=== PATIENT | male | born 1955 | race Caucasian/White ===

== ENCOUNTER 2019-09-19 16:09 | Emergency (ER) | payer BC ==
[2019-09-19] MEDS ORDERED: NEOMYCIN/POLYMYXIN B SULF/HC 10ML BTL OT ONE (16:40)
--- NOTE | 2019-09-19 16:41 | Emergency Department Record ---
History of Present Illness - General Chief complaint: ENT Stated complaint: R EAR PAIN Time Seen by Provider: 09/19/19 16:29 Source: Patient Mode of Arrival: Ambulatory Limitations: No limitations - History of Present Illness Initial comments: The patient has had R ear pain for 4 days. It has gotten worse the last day or two. He denies any [place], ST, cough, or fever. The patient does use Q-tips but denies any possibility of scratching the eardrum. Additionally the patient has had some dry heaves in the morning only for the last 3 days. He states his blood sugar has been running OK for him and has not been high. MD complaint: Ear pain Onset/Timin -: Days(s) Location: R ear Severity: Moderate Severity scale (1-10): 8 Quality: Sharp, Stabbing Consistency: Constant Improves with: NSAID, Other medication Worsens with: None - Related Data Home Medications Medication Instructions Recorded Confirmed Last Taken Chlorthalidone 25 mg PO DAILY 09/19/19 09/19/19 09/19/19 Enalapril Maleate [Vasotec] 20 mg PO DAILY 09/19/19 09/19/19 09/19/19 Insulin Glargine,Hum.rec.anlog 100 unit SQ ASDIR 09/19/19 09/19/19 09/19/19 [Lantus Solostar] Metformin HCl 500 mg PO BID 09/19/19 09/19/19 09/19/19 Omeprazole [Prilosec] 20 mg PO DAILY 09/19/19 09/19/19 09/19/19 Simvastatin 20 mg PO DAILY 09/19/19 09/19/19 09/19/19 Sitagliptin Phosphate [Januvia] 100 mg PO ASDIR 09/19/19 09/19/19 09/19/19 Allergies Allergy/AdvReac Type Severity Reaction Status Date / Time No Known Drug Allergies Allergy Verified 09/19/19 16:23 Travel Screening - Travel/Exposure Within Last 30 Days Have you traveled within the last 30 days?: No - Travel/Exposure Within Last Year Have you traveled outside the [place] in the last year?: No - Additonal Travel Details Have you been exposed to anyone with a communicable illness?: No - Travel Symptoms Symptom Screening: None Review of Systems Constitutional: Denies: Chills, Fever Eyes: Denies: Eye discharge ENT: Denies: Congestion Respiratory: Denies: Cough, Dyspnea Past Medical History - SOCIAL HISTORY Smoking Status: Current every day smoker Alcohol Use: None Drug Use: None - RESPIRATORY Hx Respiratory Disorders: No - CARDIOVASCULAR Hx Cardio Disorders: Yes Hx Hypertension: Yes - NEURO Hx Neuro Disorders: No - GI Hx GI Disorders: Yes Hx Reflux: Yes - Hx Genitourinary Disorders: No - ENDOCRINE Hx Endocrine Disorders: Yes Hx Diabetes: Yes - MUSCULOSKELETAL Hx Musculoskeletal Disorders: No - PSYCH Hx Psych Problems: No - HEMATOLOGY/ONCOLOGY Hx Hematology/Oncology Disorders: Yes Comment:: non hodgkins lymphoma Family Medical History Any Significant Family History?: Yes Hx Dementia: Mother Physical Exam - General General Appearance: Alert, Oriented x3, Cooperative, No acute distress - Head Head exam: Atraumatic, Normocephalic, Normal inspection - Eye Eye exam: Normal appearance, PERRL, EOMI. negative: Conjunctival injection - ENT ENT exam: TM's normal bilaterally. negative: Normal exam Ear exam: Normal external inspection, External canal tenderness (L side with mild erythema superiorly. ), Other (There is pain with palpation of the L tragus.) Throat exam: Normal inspection. negative: Tonsillar erythema, Tonsillar exudate - Neck Neck exam: Normal inspection, Full ROM. negative: Lymphadenopathy, Meningismus, Tenderness - Respiratory Respiratory exam: Normal lung sounds bilaterally. negative: Respiratory distress - Cardiovascular Cardiovascular Exam: Regular rate, Normal rhythm, Normal heart sounds - GI/Abdominal GI/Abdominal exam: Soft, Normal bowel sounds. negative: Guarding, Pulsatile mass, Rebound, Rigid, Tenderness - Extremities Extremities exam: Normal inspection, Full ROM, Normal capillary refill. negative: Tenderness - Back Back exam: Reports: Normal inspection. Denies: Vertebral tenderness - Neurological Neurological exam: Alert. negative: Motor sensory deficit Course Vital Signs 09/19/19 16:28 Temperature 98.2 F Pulse Rate 81 Respiratory 20 Rate Blood Pressure 178/104 Pulse Ox 98 - Reevaluation(s) Reevaluation #1: The patient now states the pain is move over his jaw. He does have a long hx of chronic dental issues and believes the problem is from a bad tooth. On exam the L # 28 tooth is very caried and very tender to palpation. Tapping on the tooth does reproduce the patient's jaw pain. There is no swelling at the gum line. 09/19/19 17:41 I did block the R lower jaw tooth with 1.5 cc's of a 50:50 mixture of Lido 1% and Sensoricaine. The patient did get moderate relief of his dental pain with the block. Reevaluation #2: The patient is doing better at this time and states the pain is much improved. Due to the new onset Renal Failure I did recommend hospital admission and due to the patient's doctor being at [facility] he would like to be transferred there. I then did discuss the case with Dr. Campbell and he does accept the patient as a di rect admission. 09/19/19 18:51 Medical Decision Making - Data Complexity MDM Data: Labs Ordered and/or Reviewed - Lab Data Result diagrams: 09/19/19 17:18 09/19/19 17:18 Disposition Disposition: Transfer Clinical Impression: Renal failure, acute Qualifiers: Acute renal failure type: unspecified Qualified Code(s): N17.9 - Acute kidney failure, unspecified Disposition: [facility] Transfer Transfer To: [facility] Reason For Transfer: Renal Failure Accepting Physician: Adrian Time Discussed w/Accepting Physician: 18:53 Condition: (2) Stable Forms: Patient Portal Access Time of Disposition: 18:53 Quality - Quality Measures Quality Measures: N/A - Blood Pressure Screening View Details: Yes Does Patient Have Any of the Following: Active Dx of HTN Blood Pressure Classification: Hypertensive Reading Systolic Measurement: 166 Diastolic Measurement: 92 Screening for High Blood Pressure: Patient Exclusion, Hx of HTN [[id number]]
[2019-09-19 17:30] LABS: BASO % 0.3 % (0-6); EOS % 0.1 % (0-6); GRAN % 76.6 % (47-80); HEMATOCRIT 42.4 % (42.0-52.0); HEMOGLOBIN 13.8 gm/dl (14.0-18.0); LYMPH % 14.9 % (16-45); MEAN CELL VOLUME 92.6 fl (81-97); MEAN CORPUSCULAR HEMOGLOBIN 30.1 pg (27-33); MEAN CORPUSCULAR HGB CONC 32.5 g/dl (32-36); MEAN PLATELET VOLUME 9.7 fl (7.4-10.4); MONO % 8.1 % (0-9); PLATELET COUNT 229 K/uL (130-400); RED BLOOD COUNT 4.58 M/uL (4.40-5.70); RED CELL DISTRIBUTION WIDTH 13.8 % (11.5-14.5); WHITE BLOOD COUNT W/O DIFF 7.1 K/uL (4.2-12.2)
[2019-09-19] MEDS ORDERED: ACETAMINOPHEN W/ CODEINE 300MG/30MG TABLET PO ONE (17:33)
[2019-09-19 17:37] LABS: ACETONE,SERUM NEGATIVE (NEGATIVE)
[2019-09-19 17:43] LABS: BLOOD UREA NITROGEN 60 mg/dL (8-23)
[2019-09-19 17:44] LABS: CREATININE 3.8 mg/dL (0.7-1.2); EST GLOMERULAR FILTRATION RATE 17 mL/min; TOTAL PROTEIN 7.6 g/dL (6.6-8.7)
[2019-09-19 17:46] LABS: GLUCOSE,RANDOM 245 mg/dL (74-109)
[2019-09-19 17:49] LABS: ALB/GLOB RATIO 1.5 (1.1-1.8); ALBUMIN 4.5 g/dL (4.0-5.0); ALKALINE PHOSPHATASE 69 U/L (40-129); ALT/SGPT 98 U/L (<41); AST/SGOT 45 U/L (10.0-50.0); C-REACTIVE PROTEIN 2.66 mg/dL (<0.5)
[2019-09-19] MEDS ORDERED: 0.9 % SODIUM CHLORIDE 1,000 ML BAG IV ONE (18:02)
[2019-09-19] MEDS ORDERED: ONDANSETRON HCL IV 4 MG/2 ML VIAL IVP ONE (18:10)
[2019-09-19] MEDS ORDERED: MORPHINE SULFATE 5 MG/ML VIAL IVP ONE (18:10)
[2019-09-19 18:16] LABS: URINE APPEARANCE CLEAR; URINE BILIRUBIN NEGATIVE (NEGATIVE); URINE BLOOD TRACE-I (NEGATIVE); URINE COLOR YELLOW; URINE KETONE NEGATIVE (NEGATIVE); URINE LEUKOCYTE ESTERASE NEGATIVE (NEGATIVE); URINE NITRITE NEGATIVE (NEGATIVE); URINE UROBILINOGEN 0.2 E.U./dL (0.20 - 1.00)
[2019-09-19 18:22] LABS: URINE EPITHELIAL CELLS NONE SEEN (FEW); URINE WBC 0 - 2 (0-2/hpf)
--- NOTE | 2019-09-19 19:33 | CT SCAN REPORT ---
EXAMINATION: ABDOMEN/PELVIS WO CONTRAST EXAM DATE:09/19/2019 7:23 PM TECHNIQUE: Spiral CT images were obtained from the lung bases to the ischial tuberosities without int ravenous contrast. Sagittal and coronal 2-D reformats were made from source images. Oral contrast: N o INDICATION: renal failure COMPARISON: None FINDINGS: CT Abdomen: Evaluation of the solid abdominal organs and vascular structures is limited without intr avenous contrast. Liver: The liver is normal in size and morphology. No focal liver lesions. Bile ducts: Normal caliber bile ducts. Gallbladder: No calcified gallstones or other abnormal finding. Pancreas: No focal lesions or peripancreatic inflammation. No dilation of the main pancreatic duct . Spleen: Normal size Adrenals: No mass or other abnormality Kidneys and Ureters: No urinary tract stones or hydronephrosis. No focal renal lesions. GI: The bowel is unremarkable. The appendix is not visualized. Vasculature: Unremarkable. No aneurysmal dilation of the abdominal aorta. Lymph Nodes: No lymphadenopathy. Abdominal Wall: Unremarkable. Peritoneal Cavity: No free intraperitoneal fluid or gas. Retroperitoneum: Unremarkable. Skeletal: Severe disc height loss at L4-5. Lung bases: The lung bases are unremarkable. CT Pelvis (In addition to findings described above.): Bladder: The bladder is unremarkable. Lymph nodes: No lymphadenopathy. IMPRESSION: No hydronephrosis or other acute abnormality. Dictated by: Neno Duffy MD on 09/19/2019 7:23 PM. .
== END 2019-09-19 19:58 | disposition short-term general hospital (02) ==
LOC: ER 16:09
DX: N17.9 Acute kidney failure, unspecified (principal); I10 Essential (primary) hypertension; K02.9 Dental caries, unspecified; H92.01 Otalgia, right ear; E11.9 Type 2 diabetes mellitus without complications; F17.210 Nicotine dependence, cigarettes, uncomplicated
CPT/HCPCS: 99285 ×2; 96374; 96375; 85025; 86140; 80053; 81001; 82009; 74176; 93005; 93010; J2405; J7030